=== PATIENT | female | born 2000 | race Caucasian/White ===

== ENCOUNTER 2018-11-27 01:30 | Outpatient (CLI) | payer OTHER ==
[2018-11-27 03:24] LABS: ADD UMIC NO; UR ASCORBIC ACID NEGATIVE (NEGATIVE); UR BILIRUBIN (Dip) NEGATIVE (NEGATIVE); UR BLOOD (Dip) NEGATIVE (NEGATIVE); UR CLARITY CLEAR (CLEAR); UR COLOR COLORLESS (YELLOW); UR GLUCOSE (Dip) NEGATIVE (NEGATIVE); UR KETONES (Dip) NEGATIVE (NEGATIVE); UR LEUKOCYTE ESTERASE (Dip) NEGATIVE Leu/ul (NEGATIVE); UR NITRITE (Dip) NEGATIVE (NEGATIVE); UR SPECIFIC GRAVITY (Dip) 1.001 (1.003-1.030); UR TOTAL PROTEIN (Dip) NEGATIVE (NEGATIVE); UR UROBILINOGEN (Dip) NEGATIVE (NEGATIVE)
[2018-11-27 03:47] LABS: ADD MAN DIFF? NO
[2018-11-27 04:04] LABS: BASOPHILS % 0.3 % (0.0-2.0); EOSINOPHILS # 0.1 10^3/ul (0.0-0.5); HEMOGLOBIN 11.8 g/dl (12.0-16.0); LYMPHOCYTES # 2.5 10^3/ul (0.8-2.9); LYMPHOCYTES % 20.1 % (18.0-55.0); MEAN CORPUSCULAR HEMOGLOBIN 24.9 pg (29.0-33.0); MEAN CORPUSCULAR HGB CONC 32.8 g/dl (32.0-37.0); MEAN CORPUSCULAR VOLUME 75.9 fl (72.0-104.0); MEAN PLATELET VOLUME 10.9 fl (7.4-10.4); MONOCYTE # 0.9 10^3/ul (0.3-0.9); MONOCYTES % 6.8 % (0.0-13.0); NEUTROPHIL # 8.8 10^3/ul (1.6-7.5); NEUTROPHILS % 69.8 % (30.0-74.0); PLATELET COUNT 312 10^3/UL (140-415); RED BLOOD COUNT 4.74 10^6/ul (4.20-5.40); RED CELL DISTRIBUTION WIDTH 14.1 % (11.5-14.5)
[2018-11-27 04:04] LABS: WHITE BLOOD COUNT 12.6 10^3/ul (4.8-10.8)
== END 2018-11-27 04:29 | disposition home or self-care (01) ==
LOC: OBT 01:30 → L-D 01:30 → OBT 04:29
DX: O26.893 Other specified pregnancy related conditions, third trimester (principal); R10.9 Unspecified abdominal pain; Z3A.29 29 weeks gestation of pregnancy
CPT/HCPCS: 36415; 76817; 76818; 81003; 85025; 87086

== ENCOUNTER 2018-12-29 05:45 | Inpatient (IN) | payer MEDICAID, OTHER ==
[2018-12-29] MEDS ORDERED: LACTATED RINGER'S 1,000 ML IV ×2 (06:49→09:36)
[2018-12-29] MEDS ORDERED: LIDOCAINE 1% (MPF) 30 ML INJ INJ (07:00)
[2018-12-29] MEDS ORDERED: BUTORPHANOL 2 MG INJ IV ×4 (07:00→10:00)
[2018-12-29] MEDS ORDERED: IBUPROFEN 600 MG TAB PO (07:00)
[2018-12-29] MEDS ORDERED: METHYLERGONOVINE 0.2 MG INJ IM ×3 (07:00→17:30)
[2018-12-29] MEDS ORDERED: MINERAL OIL LIGHT 10 ML VIAL TOP (07:00)
[2018-12-29] MEDS ORDERED: CARBOPROST 250 MCG INJ IM ×3 (07:00→17:30)
[2018-12-29] MEDS ORDERED: OXYTOCIN 30 UNITS/LR 500 ML IV ×5 (07:00→17:30)
[2018-12-29] MEDS ORDERED: MISOPROSTOL 200 MCG TAB PR ×3 (07:00→17:30)
[2018-12-29] MEDS: BETAMET NA PHOS/AC(6 MG/ML) 2 ML INJ SYG IM ×2 (07:00→08:44)
[2018-12-29] MEDS: LACTATED RINGER'S 1,000 ML IV ×2 (07:53→14:49)
[2018-12-29] MEDS: AMPICILLIN 2 GM/NS (PMX) 100 ML IV (07:55)
[2018-12-29 09:06] LABS: RUPTURE FETAL MEMBRANES POSITIVE (NEGATIVE)
[2018-12-29 09:18] LABS: ADD MAN DIFF? NO
[2018-12-29 09:21] LABS: BASOPHILS % 0.3 % (0.0-2.0); EOSINOPHILS # 0.1 10^3/ul (0.0-0.5); EOSINOPHILS % 0.8 % (0.0-7.0); HEMATOCRIT 38.8 % (37.0-47.0); HEMOGLOBIN 12.4 g/dl (12.0-16.0); LYMPHOCYTES # 2.8 10^3/ul (0.8-2.9); LYMPHOCYTES % 22.9 % (18.0-55.0); MEAN CORPUSCULAR HEMOGLOBIN 24.7 pg (29.0-33.0); MEAN CORPUSCULAR VOLUME 77.1 fl (72.0-104.0); MEAN PLATELET VOLUME 11.4 fl (7.4-10.4); MONOCYTE # 0.9 10^3/ul (0.3-0.9); MONOCYTES % 7.3 % (0.0-13.0); NEUTROPHIL # 8.4 10^3/ul (1.6-7.5); NEUTROPHILS % 67.6 % (30.0-74.0); PLATELET COUNT 297 10^3/UL (140-415); RED BLOOD COUNT 5.03 10^6/ul (4.20-5.40); RED CELL DISTRIBUTION WIDTH 14.6 % (11.5-14.5)
[2018-12-29 09:21] LABS: WHITE BLOOD COUNT 12.4 10^3/ul (4.8-10.8)
[2018-12-29 09:37] LABS: INR 0.93; PROTIME 12.6 Sec (11.9-14.9)
[2018-12-29 09:39] LABS: PARTIAL THROMBOPLASTIN TIME 29.2 Sec (23.0-35.0)
[2018-12-29] MEDS ORDERED: OXYCODONE/ASPIRIN (4.88/325) TAB PO ×3 (10:00→17:30)
[2018-12-29 10:10] LABS: HEPATITIS B SURFACE ANTIGEN NEGATIVE (NEGATIVE)
[2018-12-29] MEDS: AMPICILLIN 1 GM/NS (PMX) 50 ML IV (10:57)
[2018-12-29 11:47] LABS: ADD UMIC YES; UR ASCORBIC ACID NEGATIVE (NEGATIVE); UR BILIRUBIN (Dip) NEGATIVE (NEGATIVE); UR BLOOD (Dip) 2+ mg/dL (NEGATIVE); UR CLARITY SLIGHTLY CLOUDY (CLEAR); UR COLOR YELLOW (YELLOW); UR GLUCOSE (Dip) NEGATIVE (NEGATIVE); UR KETONES (Dip) 1+ mg/dL (NEGATIVE); UR LEUKOCYTE ESTERASE (Dip) NEGATIVE Leu/ul (NEGATIVE); UR NITRITE (Dip) NEGATIVE (NEGATIVE); UR RBC 8 /HPF (0-5); UR SPECIFIC GRAVITY (Dip) 1.017 (1.003-1.030); UR TOTAL PROTEIN (Dip) NEGATIVE (NEGATIVE); UR UROBILINOGEN (Dip) NEGATIVE (NEGATIVE); UR WBC 1 /HPF (0-5)
[2018-12-29] MEDS: IBUPROFEN 600 MG TAB PO ×2 (13:53→18:00)
[2018-12-29] MEDS: OXYTOCIN 30 UNITS/LR 500 ML IV ×3 (13:56→18:01)
[2018-12-29] MEDS: MINERAL OIL LIGHT 10 ML VIAL TOP (13:56)
[2018-12-29] MEDS: LIDOCAINE 1% (MPF) 30 ML INJ INJ (13:57)
[2018-12-29 15:49] LABS: RAPID PLASMA REAGIN NONREACTIVE (NR)
[2018-12-29] MEDS ORDERED: ZOLPIDEM 5 MG TAB PO (17:30)
[2018-12-29] MEDS ORDERED: LANOLIN HPA 1 PKT TOP (17:30)
[2018-12-29] MEDS: WITCH HAZEL/GLYCERIN PAD PR (17:48)
[2018-12-29] MEDS: BENZOCAINE 20% 56 ML SPRAY TOP (17:49)
[2018-12-29] MEDS: SENNA/DOCUSATE NA (8.6MG/50MG) TAB PO (20:50)
[2018-12-30] MEDS: IBUPROFEN 600 MG TAB PO ×4 (00:03→18:32)
[2018-12-30] MEDS: OXYTOCIN 30 UNITS/LR 500 ML IV ×2 (03:50→13:50)
[2018-12-30 07:13] LABS: ADD MAN DIFF? NO
[2018-12-30 07:16] LABS: BASOPHIL # 0.1 10^3/ul (0.0-0.1); BASOPHILS % 0.3 % (0.0-2.0); HEMATOCRIT 37.1 % (37.0-47.0); LYMPHOCYTES # 2.6 10^3/ul (0.8-2.9); LYMPHOCYTES % 12.9 % (18.0-55.0); MEAN CORPUSCULAR HEMOGLOBIN 24.7 pg (29.0-33.0); MEAN CORPUSCULAR HGB CONC 32.3 g/dl (32.0-37.0); MEAN CORPUSCULAR VOLUME 76.5 fl (72.0-104.0); MEAN PLATELET VOLUME 11.1 fl (7.4-10.4); MONOCYTE # 1.1 10^3/ul (0.3-0.9); MONOCYTES % 5.6 % (0.0-13.0); NEUTROPHIL # 16.3 10^3/ul (1.6-7.5); NEUTROPHILS % 79.9 % (30.0-74.0); PLATELET COUNT 301 10^3/UL (140-415); RED BLOOD COUNT 4.85 10^6/ul (4.20-5.40); RED CELL DISTRIBUTION WIDTH 14.4 % (11.5-14.5)
[2018-12-30 07:16] LABS: WHITE BLOOD COUNT 20.4 10^3/ul (4.8-10.8)
[2018-12-30] MEDS: SENNA/DOCUSATE NA (8.6MG/50MG) TAB PO ×2 (09:27→23:09)
[2018-12-31] MEDS ORDERED: DIPHTH/TET/ACEL PERTUSS (ADULT) 0.5 ML VIAL IM* (09:00)
== END 2018-12-30 23:20 | disposition home or self-care (01) | DRG 806 ==
LOC: OBT 05:45 → L-D 05:45 → OBT 06:39 → L-D 06:39 → PP1 17:47
PROVIDERS: Obstetrics & Gynecology
PROC: 10E0XZZ Delivery of Products of Conception, External Approach (ICD-10-PCS; principal; 2018-12-29)
PROC: 0HQ9XZZ Repair Perineum Skin, External Approach (ICD-10-PCS; 2018-12-29)
PROC: 4A1HXCZ Monitoring of Products of Conception, Cardiac Rate, External Approach (ICD-10-PCS; 2018-12-29)
DX: O42.013 Preterm premature rupture of membranes, onset of labor within 24 hours of rupture, third trimester (principal); O26.873 Cervical shortening, third trimester; Z37.0 Single live birth; O70.0 First degree perineal laceration during delivery; Z3A.34 34 weeks gestation of pregnancy
CPT/HCPCS: 76815; 76818; 81001; 84112; 85025; 85610; 85730; 86592; 86850; 86900; 86901; 87086; 87340; 88307; 99464